=== PATIENT | female | born 1950 | race Caucasian/White ===

== ENCOUNTER → 2017-02-05 | Outpatient (CLI) | payer OTHER ==
[~2017-02-05] MED LIST: ANAPROX DS550 MG PO; ANTIVERT/2525 MG PO; ASPIRIN81 M1 PO; BENADRYL25 M2 PO; CALCIUM600 M2 PO; CHONDROITIN/GLU1 TA5 PO; CILOXAN 5 ML5 ML OT; CLARITIN-D 24 H1 TAB PO; CRANBERRY PO; DILTIA XT180 MG PO; DILTIAZEM; Diltiazem180 MG PO; FOSAMAX70 MG/75 M PO; GLUCOSAMINE CH1 EAC2 PO; GLUCOSAMINE500 M1 PO; NASONEX0.05 MG/AC NS; NEFAZODONE150 MG PO; PREVACID15 MG PO; TRAMADOL HCL50 MG PO; VENLAFAXINE H37.5 M1 PO; VITAMIN C500 M6 PO; ZOFRAN ODT4 MG SL; eye drops
== END | disposition home or self-care (01) ==
LOC: MAMMO 01-26 13:00
DX: Z12.31 Encounter for screening mammogram for malignant neoplasm of breast (principal)

== ENCOUNTER 2017-03-19 18:45 | Emergency (ER) | payer OTHER ==
[~2017-03-19] VITALS: Ht 165.1 cm; Wt 90.7 kg
[2017-03-19] MEDS ORDERED: KENALOG 0.1%80 GM T (19:21)
[2017-03-19] MEDS ORDERED: PREDNISONE10 MG PO (19:21)
== END 2017-03-19 22:40 | disposition home or self-care (01) ==
LOC: ED 18:45
DX: L25.5 Unspecified contact dermatitis due to plants, except food (principal); Z91.041 Radiographic dye allergy status; Z79.82 Long term (current) use of aspirin; Z79.899 Other long term (current) drug therapy

== ENCOUNTER → 2018-05-11 | Outpatient (CLI) | payer MEDICARE ==
[~2018-05-11] MED LIST changes: +KENALOG 0.1%80 GM T; +PREDNISONE10 MG PO
== END | disposition home or self-care (01) ==
LOC: MAMMO 16:40
DX: Z12.31 Encounter for screening mammogram for malignant neoplasm of breast (principal)

== ENCOUNTER 2018-10-12 11:44 | Inpatient (IN) | payer MEDICARE ==
[~2018-10-12] VITALS: Ht 165.1 cm; Wt 96.4 kg
--- NOTE | ~2018-10-12 | EKG ---
[place], [place] ELECTROCARDIOGRAM REPORT NAME: NANCI BENDER UNIT #: [id number] ROOM: 502 DOCTOR: NICOLE DRAFT REPORT BIRTHDATE: [birth year] [facility] Test Date: 2018-10-12 Test Time: 18:08:21 Pat Name: NANCI BENDER Department: Room: [facility] Gender: F Director Of Clinical Services: Alpa Cain : 1950 Requested By: KIMBERLEY SHAH Order Number: [id number] Reading MD: Syed Harris MD Measurements Intervals [place] Rate: 75 P: 22 [place]: 153 QRS: -7 QRSD: 93 T: 54 QT: 459 QTc: 513 Interpretive Statements Sinus rhythm Probable LVH with secondary repol abnrm Inferior infarct, old Prolonged QT interval Baseline wander in lead(s) V1 No previous ECG available for comparison Electronically Signed On 10-12-2018 17:04:49 PST by Syed Harris MD CM:EKGRPT:ELECTROCARDIOGRAM REPORT [id number] 1704 KIMBERLEY RIVERA DRAFT REPORT KIMBERLEY SHAH MD
--- NOTE | ~2018-10-12 | EKG ---
[place], [place] ELECTROCARDIOGRAM REPORT NAME: NANCI BENDER UNIT #: [id number] ROOM: 502 DOCTOR: NICOLE DRAFT REPORT BIRTHDATE: [birth year] [facility] Test Date: 2018-10-12 Test Time: 11:44:35 Pat Name: NANCI BENDER Department: ER Room: [facility] Gender: F Distributor Cleaner: Fady Thorpe : 1950 Requested By: KIMBERLEY SHAH Order Number: [id number] Reading MD: Syed Harris MD Measurements Intervals [place] Rate: 78 P: 63 [place]: 164 QRS: -7 QRSD: 94 T: 135 QT: 426 QTc: 486 Interpretive Statements Sinus rhythm Abnormal R-wave progression, early transition Probable LVH with secondary repol abnrm Inferior infarct, old Electronically Signed On 10-12-2018 17:03:31 PST by Syed Harris MD CM:EKGRPT:ELECTROCARDIOGRAM REPORT 1144 1703 KIMBERLEY RIVERA DRAFT REPORT KIMBERLEY SHAH MD
--- NOTE | ~2018-10-12 | EKG ---
[place], [place] ELECTROCARDIOGRAM REPORT NAME: NANCI BENDER UNIT #: [id number] ROOM: 502 DOCTOR: NICOLE DRAFT REPORT BIRTHDATE: [birth year] [facility] Test Date: 2018-10-12 Test Time: 15:41:53 Pat Name: NANCI BENDER Department: Room: [facility] Gender: F Case Management Manager: Alpa Cain : 1950 Requested By: KIMBERLEY SHAH Order Number: [id number] Reading MD: Syed Harris MD Measurements Intervals [place] Rate: 73 P: 57 [place]: 158 QRS: -14 QRSD: 97 T: 116 QT: 410 QTc: 452 Interpretive Statements Sinus rhythm Probable LVH with secondary repol abnrm Inferior infarct, old No previous ECG available for comparison Electronically Signed On 10-12-2018 17:04:34 PST by Syed Harris MD CM:EKGRPT:ELECTROCARDIOGRAM REPORT [id number] 1704 KIMBERLEY RIVERA DRAFT REPORT
--- NOTE | ~2018-10-12 | EKG ---
[place], [place] ELECTROCARDIOGRAM REPORT NAME: NANCI BENDER UNIT #: [id number] ROOM: DOCTOR: NICOLE DRAFT REPORT BIRTHDATE: [birth year] [facility] Test Date: 2018-10-12 Test Time: 11:53:30 Pat Name: NANCI BENDER Department: Room: Gender: F Syrup Mixer Assistant: : 1950 Requested By: KIMBERLEY SHAH Order Number: [id number] Reading MD: Measurements Intervals [place] Rate: 81 P: 58 [place]: 157 QRS: -12 QRSD: 104 T: 75 QT: 388 QTc: 451 Interpretive Statements Sinus rhythm Low voltage, extremity leads Probable left ventricular hypertrophy Baseline wander in lead(s) V4 No previous ECG available for comparison CM:EKGRPT:ELECTROCARDIOGRAM REPORT 1153 0858 KIMBERLEY RIVERA DRAFT REPORT KIMBERLEY SHAH MD
[2018-10-12 11:49] VITALS: BP 119/79
[2018-10-12 12:09] LABS: BASO % 0.6 % (0.0-1.0); EOS # 0.1 10*3/uL (0.0-0.4); EOS % 1.8 % (1.0-4.0); HEMATOCRIT 41.1 % (37.0-47.0); LYMPH # 2.2 10*3/uL (1.3-4.4); LYMPH % 32.9 % (27.0-41.0); MEAN CELL VOLUME 93.8 fl (81.0-99.0); MEAN CORPUSCULAR HGB 29.7 pg (27.0-31.0); MEAN CORPUSCULAR HGB CONC 31.6 g/dl (33.0-37.0); MONO # 0.9 10*3/uL (0.1-1.0); MONO % 13.9 % (3.0-9.0); NEUT # 3.4 10*3/uL (2.3-7.9); NEUT % 50.2 % (47.0-73.0); PLATELET COUNT AUTOMATED 333 10*3/uL (130-400); RED BLOOD COUNT 4.38 10*6/uL (4.10-5.10); RED CELL DISTRI WIDTH 13.7 % (0-14.5); WHITE BLOOD COUNT 6.7 10*3/uL (4.8-10.8)
[2018-10-12 12:21] LABS: INTERNATIONAL NORM RATIO 0.9 (2.0-3.5)
[2018-10-12 12:39] LABS: ALBUMIN 3.6 gm/dl (3.1-4.5); ALKALINE PHOSPHATASE 88 U/L (45-117); BUN 15 mg/dl (7-24); CHLORIDE 110 mmol/L (98-107); CREATININE 0.93 mg/dL (0.55-1.02); POTASSIUM 3.5 mmol/L (3.5-5.1); SGOT/AST 15 IU/L (3-35); SGPT/ALT 23 U/L (12-78); SODIUM 143 mmol/L (136-145); TOTAL PROTEIN 7.2 gm/dL (6.4-8.2)
[2018-10-12 12:45] VITALS: BP 138/78
[2018-10-12 12:45] LABS: TROPONIN I < 0.015 ng/ml (<0.045)
[2018-10-12 14:30] VITALS: BP 153/85
[2018-10-12 20:00] VITALS: BP 147/69
[2018-10-13] VITALS: BP 145/66
[2018-10-13 06:35] LABS: BASO # 0.1 10*3/uL (0.0-0.1); BASO % 0.6 % (0.0-1.0); EOS # 0.4 10*3/uL (0.0-0.4); EOS % 4.1 % (1.0-4.0); HEMATOCRIT 42.5 % (37.0-47.0); HEMOGLOBIN 12.8 g/dl (12.0-16.0); LYMPH # 3.9 10*3/uL (1.3-4.4); LYMPH % 43.5 % (27.0-41.0); MEAN CELL VOLUME 95.5 fl (81.0-99.0); MEAN CORPUSCULAR HGB 28.8 pg (27.0-31.0); MEAN CORPUSCULAR HGB CONC 30.1 g/dl (33.0-37.0); MEAN PLATELET VOLUME 10.5 fl (9.6-12.3); MONO % 11.4 % (3.0-9.0); NEUT # 3.6 10*3/uL (2.3-7.9); NEUT % 40.1 % (47.0-73.0); PLATELET COUNT AUTOMATED 334 10*3/uL (130-400); RED BLOOD COUNT 4.45 10*6/uL (4.10-5.10); RED CELL DISTRI WIDTH 13.7 % (0-14.5)
[2018-10-13 06:56] LABS: BUN 14 mg/dl (7-24); CHLORIDE 109 mmol/L (98-107); CHOLESTEROL 197 mg/dL (<200); CREATININE 0.85 mg/dL (0.55-1.02); FREE T4 0.97 ng/dl (0.76-1.46); HDL CHOLESTEROL 55 mg/dl (40-60); LDL CHOLESTEROL 117 mg/dL (9-159); PHOSPHOROUS 3.5 mg/dL (2.5-4.9); POTASSIUM 3.5 mmol/L (3.5-5.1); SODIUM 142 mmol/L (136-145); TRIGLYCERIDES 125 mg/dl (<150); VLDL CHOLESTEROL 25 mg/dL (6-40)
[2018-10-13 07:33] LABS: VITAMIN D, 25-HYDROXY 28.8 ng/mL (30-100)
[2018-10-13 08:00] VITALS: BP 142/76
[2018-10-13 12:00] VITALS: BP 114/82
[2018-10-13 16:00] VITALS: BP 153/73
[2018-12-16] MEDS ORDERED: PREDNISONE50 MG PO (08:23)
== END 2018-10-13 17:50 | disposition home or self-care (01) | DRG 206 ==
LOC: ED 11:44 → EDHOLD 13:09 → 5E 13:18
PROVIDERS: Emergency Medicine; Internal Medicine; ADMIT Internal Medicine
PROC: 3E073KZ Introduction of Other Diagnostic Substance into Coronary Artery, Percutaneous Approach (ICD-10-PCS; principal; 2018-10-13)
PROC: 4A02XM4 Measurement of Cardiac Total Activity, External Approach (ICD-10-PCS; principal; 2018-10-13)
DX: M94.0 Chondrocostal junction syndrome [Tietze] (principal); K21.9 Gastro-esophageal reflux disease without esophagitis; I10 Essential (primary) hypertension; R07.89 Other chest pain; F41.9 Anxiety disorder, unspecified; F32.9 Major depressive disorder, single episode, unspecified; L42 Pityriasis rosea; E87.8 Other disorders of electrolyte and fluid balance, not elsewhere classified; Z90.49 Acquired absence of other specified parts of digestive tract; Z90.710 Acquired absence of both cervix and uterus; Z79.82 Long term (current) use of aspirin; Z79.899 Other long term (current) drug therapy; Z91.041 Radiographic dye allergy status; Z82.49 Family history of ischemic heart disease and other diseases of the circulatory system

== ENCOUNTER 2019-03-20 14:22 | Inpatient (IN) | payer MEDICARE ==
[~2019-03-20] VITALS: Ht 165.1 cm; Wt 87.7 kg
--- NOTE | ~2019-03-20 | EKG ---
[place], [place] ELECTROCARDIOGRAM REPORT NAME: NANCI BENDER UNIT #: [id number] ROOM: [facility] DOCTOR: NICOLE DRAFT REPORT BIRTHDATE: [birth year] [facility] Test Date: 2019-03-20 Test Time: 20:32:40 Pat Name: NANCI BENDER Department: Room: [facility] Gender: F Cheese Sprayer: : 1950 Requested By: KIMBERLEY SHAH Order Number: [id number] Reading MD: Mike Mai MD Measurements Intervals [place] Rate: 90 P: 49 MS: 155 QRS: -6 QRSD: 98 T: 87 QT: 389 QTc: 476 Interpretive Statements Sinus rhythm Nonspecific T abnormalities, lateral leads Electronically Signed On 03-21-2019 16:07:49 PDT by Mike Mai MD CM:EKGRPT:ELECTROCARDIOGRAM REPORT 31 1607 KIMBERLEY RIVERA DRAFT REPORT KIMBERLEY SHAH MD
--- NOTE | ~2019-03-20 | EKG ---
[place], [place] ELECTROCARDIOGRAM REPORT NAME: NANCI BENDER UNIT #: [id number] ROOM: [facility] DOCTOR: NICOLE DRAFT REPORT BIRTHDATE: [birth year] [facility] Test Date: 2019-03-20 Test Time: 14:55:22 Pat Name: NANCI BENDER Department: Room: [facility] Gender: F Artificial Glass Eye Maker: EKG.HI : 1950 Requested By: KIMBERLEY SHAH Order Number: [id number] Reading MD: Mike Mai MD Measurements Intervals [place] Rate: 88 P: 46 [place]: 148 QRS: -10 QRSD: 86 T: 129 QT: 361 QTc: 437 Interpretive Statements Sinus rhythm Probable left atrial enlargement Nonspecific ST \T\ T changes Possible inferior infarct, age undetermined Electronically Signed On 03-21-2019 15:55:50 PDT by Mike Mai MD CM:EKGRPT:ELECTROCARDIOGRAM REPORT [id number] 1555 KIMBERLEY RIVERA DRAFT REPORT KIMBERLEY SHAH MD
--- NOTE | ~2019-03-20 | EKG ---
[place], [place] ELECTROCARDIOGRAM REPORT NAME: NANCI BENDER UNIT #: [id number] ROOM: [facility] DOCTOR: NICOLE DRAFT REPORT BIRTHDATE: [birth year] [facility] Test Date: 2019-03-20 Test Time: 17:37:06 Pat Name: NANCI BENDER Department: Room: [facility] Gender: F End User Support Specialist: [email or web address].AZ : 1950 Requested By: KIMBERLEY SHAH Order Number: [id number] Reading MD: Mike Mai MD Measurements Intervals [place] Rate: 94 P: 57 MD: 154 QRS: -22 QRSD: 84 T: 144 QT: 438 QTc: 548 Interpretive Statements Sinus rhythm Possible inferior infarct, old Lateral leads are also involved Electronically Signed On 03-21-2019 15:59:44 PDT by Mike Mai MD CM:EKGRPT:ELECTROCARDIOGRAM REPORT [id number] 1559 KIMBERLEY RIVERA DRAFT REPORT KIMBERLEY SHAH MD
[2019-03-20 14:22] VITALS: BP 116/88
[~2019-03-20 14:22] MED LIST changes: +PREDNISONE50 MG PO
[2019-03-20 14:56] VITALS: BP 147/76
--- NOTE | 2019-03-20 14:56 | NUR ---
FEELING A LITTLE BETTER AFTER MEDS HOWEVER SHE DOES STILL HAVE SOME DIFFICULTY SWALLOWING.
[2019-03-20 15:05] LABS: BASO # 0.1 10*3/uL (0.0-0.1); BASO % 0.8 % (0.0-1.0); EOS # 0.5 10*3/uL (0.0-0.4); EOS % 3.9 % (1.0-4.0); HEMATOCRIT 46.2 % (37.0-47.0); HEMOGLOBIN 14.4 g/dl (12.0-16.0); LYMPH # 4.4 10*3/uL (1.3-4.4); LYMPH % 38.1 % (27.0-41.0); MEAN CELL VOLUME 94.9 fl (81.0-99.0); MEAN CORPUSCULAR HGB 29.6 pg (27.0-31.0); MEAN CORPUSCULAR HGB CONC 31.2 g/dl (33.0-37.0); MEAN PLATELET VOLUME 10.5 fl (9.6-12.3); MONO % 8.4 % (3.0-9.0); NEUT # 5.6 10*3/uL (2.3-7.9); NEUT % 48.3 % (47.0-73.0); PLATELET COUNT AUTOMATED 474 10*3/uL (130-400); RED BLOOD COUNT 4.87 10*6/uL (4.10-5.10); RED CELL DISTRI WIDTH 13.5 % (0-14.5); WHITE BLOOD COUNT 11.6 10*3/uL (4.8-10.8)
[2019-03-20 15:16] LABS: ACT PARTIAL THROMBO TIME 21.5 SECONDS (20.0-32.1); INTERNATIONAL NORM RATIO 0.9 (2.0-3.5)
[2019-03-20 15:24] LABS: ALBUMIN 3.6 gm/dl (3.1-4.5); ALKALINE PHOSPHATASE 86 U/L (45-117); BUN 12 mg/dl (7-24); CHLORIDE 110 mmol/L (98-107); CREATININE 1.13 mg/dL (0.55-1.02); POTASSIUM 3.3 mmol/L (3.5-5.1); SGOT/AST 10 IU/L (3-35); SGPT/ALT 20 U/L (12-78); SODIUM 145 mmol/L (136-145)
[2019-03-20 15:25] LABS: TROPONIN I < 0.015 ng/ml (<0.045)
[2019-03-20 15:33] VITALS: BP 147/76
--- NOTE | 2019-03-20 15:50 | NUR ---
A 68, admitted to ICCU, under the services of REYNA Christie DO with a diagnosis of ANAPHYLAXSIS, CHEST PRESSURE. Chief complaint is REACTION TO BEE STING. Patient arrived via stretcher from ER. Monitor applied. Initial assessment completed. Vital signs taken and recorded. REYNA CHRISTIE DO notified of admission to the unit. Orders received. See assessment for past medical history, medications and allergies. Patient and/or family oriented to unit. [facility] ICCU visitation policy reviewed. Clothing/patient valuable form completed. IVF BOLUS INFUSING [place] FERRELL
[2019-03-20 15:53] VITALS: BP 171/75
--- NOTE | 2019-03-20 15:53 | NUR ---
A 68, admitted to ICCU, under the services of REYNA Christie DO with a diagnosis of CHEST HEAVINESS AND ANAPHYLACTIC REACTION TO BEE STING. Chief complaint is HIVES AND DIFFICULTY BREATHING AFTER BEE STING. Patient arrived via stretcher from ER. Monitor applied. Initial assessment completed. Vital signs taken and recorded. REYNA CHRISTIE DO notified of admission to the unit. Orders received. See assessment for past medical history, medications and allergies. Patient and/or family oriented to unit. [facility] ICCU visitation policy reviewed. Clothing/patient valuable form completed. JF BACK
--- NOTE | 2019-03-20 16:05 | NUR ---
MED REC REVIEWED WITH PATIENT AND UPDATED
--- NOTE | 2019-03-20 17:25 | NUR ---
PT EATING DINNER. PT DENIES C/O OF TROUBLE SWALLOWING AT THIS TIME. WILL CONTINUE TO MONITOR PT.
[2019-03-20 20:00] VITALS: BP 174/84
--- NOTE | 2019-03-20 20:18 | NUR ---
1935 RESTING IN BED TALKING WITH VISITORS. ALERT AND PLEASANT. IV FLUIDS INFUSING WELL. DENIES C/O'S CHEST HEAVINESS AT PRESENT TIME. PULSE OX 97% ON RA. NO SWELLING NOTED OF LIPS OR EYELIDS AT PRESENT. RESPIRATIONS EASY AND REGULAR.
--- NOTE | 2019-03-20 22:17 | NUR ---
RESTING IN BE WITHOUT C/O'S.
[2019-03-21] VITALS: BP 150/70
--- NOTE | 2019-03-21 00:11 | NUR ---
RESTING IN BED WITHOUT C/O'S. NO DISTRESS NOTED.
[2019-03-21 04:00] VITALS: BP 162/78
--- NOTE | 2019-03-21 04:03 | NUR ---
RESTING IN BED WITH EYES CLOSED. APPEARS TO BE SLEEPING.
[2019-03-21 04:59] LABS: HEMATOCRIT 39.2 % (37.0-47.0); MEAN CELL VOLUME 97.3 fl (81.0-99.0); MEAN CORPUSCULAR HGB 29.8 pg (27.0-31.0); MEAN CORPUSCULAR HGB CONC 30.6 g/dl (33.0-37.0); MEAN PLATELET VOLUME 10.8 fl (9.6-12.3); PLATELET COUNT AUTOMATED 363 10*3/uL (130-400); RED BLOOD COUNT 4.03 10*6/uL (4.10-5.10); RED CELL DISTRI WIDTH 13.6 % (0-14.5); WHITE BLOOD COUNT 12.1 10*3/uL (4.8-10.8)
[2019-03-21 05:19] LABS: BURR CELLS FEW; PLATELET SUFFICIENCY NORMAL (NORMAL); TOTAL CELLS COUNTED 100 #CELLS
[2019-03-21 05:25] LABS: ALBUMIN 3.2 gm/dl (3.1-4.5); ALKALINE PHOSPHATASE 73 U/L (45-117); BUN 10 mg/dl (7-24); CHLORIDE 115 mmol/L (98-107); CHOLESTEROL 208 mg/dL (<200); CREATININE 0.68 mg/dL (0.55-1.02); FREE T4 0.88 ng/dl (0.76-1.46); HDL CHOLESTEROL 70 mg/dl (40-60); LDL CHOLESTEROL 128 mg/dL (9-159); PHOSPHOROUS 3.2 mg/dL (2.5-4.9); POTASSIUM 4.1 mmol/L (3.5-5.1); SGOT/AST 12 IU/L (3-35); SGPT/ALT 19 U/L (12-78); SODIUM 144 mmol/L (136-145); TOTAL PROTEIN 5.9 gm/dL (6.4-8.2); TRIGLYCERIDES 48 mg/dl (<150); VLDL CHOLESTEROL 10 mg/dL (6-40)
[2019-03-21 05:30] LABS: THYROID STIM HORMONE (HS) 0.521 uIU/ml (0.358-4.75)
--- NOTE | 2019-03-21 06:03 | NUR ---
0520 TYLENOL 2 PO FOR C/O'S H/A. WILL MONITOR. 0600 EARLIER TYLENOL EFFECTIVE. RESTING IN BED WITH EYES CLOSED. IV FLUIDS CONT. NO DISTRESS NOTED. CONDITION GUARDED.
[2019-03-21 07:24] LABS: VITAMIN D, 25-HYDROXY 22.6 ng/mL (30-100)
[2019-03-21 08:00] VITALS: BP 190/98
--- NOTE | 2019-03-21 08:45 | NUR ---
DR. SUTHERLAND NOTIFIED OF BP 190/98. NOLVIA COHEN ORDERED
--- NOTE | 2019-03-21 09:00 | NUR ---
Flower Buncher Or Picker in to talk to patient. Patient states lives at home with her . Her son lives in the apartment right in front of her. There are basement steps in the home. Physician: Dr. Neil Mcdonough [facility]acy: [facility] Home health services: none Patient's level of ADLs: INDEPENDENT Patient has working utilities: yes DME: none Follow-up physician's appointment after d/c: will be made by the hospitalist nurse director upon discharge Does patient want to access PORTAL?: no Discharge plan discussed with patient. She lives at home with her and her son living in an apartment right in front of her. She is independent in her ADLs and ambulation. Discussed home health care services and she denies any home needs at this time. When medically stable she will be discharged to home. SASHA MANZANARES
[2019-03-21] MEDS ORDERED: EPIPEN 2-P0.3 MG/0.3 IJ (09:40)
[2019-03-21] MEDS ORDERED: VITAMIN D31000 UNI1 PO (09:53)
[2019-03-21] MEDS ORDERED: B12,B-12,B 12500 MC1 PO (09:53)
[2019-03-21 12:00] VITALS: BP 180/88
--- NOTE | 2019-03-21 12:08 | NUR ---
REPEAT BP 180/88. NO VOICED COMPLAINTS. PULSE OX 100% ON ROOM AIR. LUNGS CLEAR BILATERALLY. NO EDEMA NOTED. NO HIVES SEEN.
[2019-03-21 14:18] VITALS: BP 158/60
--- NOTE | 2019-03-21 15:10 | NUR ---
Discharge instructions reviewed with patient/family. Patient receptive and verbalizes understanding. Follow-up care arranged. Written instructions given to patient/family. SCRIPT GIVEN FOR EPINEPHRINE. TOLD TO F/U WITH PCP IN 1 WEEK SUNIL CHATTERJEE
== END 2019-03-21 15:10 | disposition home or self-care (01) | DRG 917 ==
LOC: ED 14:22 → EDHOLD 15:10 → ICCU 15:10
PROVIDERS: Emergency Medicine; Internal Medicine; ADMIT Family Medicine
DX: T63.441A Toxic effect of venom of bees, accidental (unintentional), initial encounter (principal); J96.00 Acute respiratory failure, unspecified whether with hypoxia or hypercapnia; N17.0 Acute kidney failure with tubular necrosis; T78.2XXA Anaphylactic shock, unspecified, initial encounter; J98.11 Atelectasis; R07.89 Other chest pain; I10 Essential (primary) hypertension; K21.9 Gastro-esophageal reflux disease without esophagitis; J32.9 Chronic sinusitis, unspecified; E87.6 Hypokalemia; E87.8 Other disorders of electrolyte and fluid balance, not elsewhere classified; D72.829 Elevated white blood cell count, unspecified; F41.9 Anxiety disorder, unspecified; F32.9 Major depressive disorder, single episode, unspecified; R00.0 Tachycardia, unspecified; X58.XXXA Exposure to other specified factors, initial encounter; Z91.041 Radiographic dye allergy status; Z90.49 Acquired absence of other specified parts of digestive tract; Z90.710 Acquired absence of both cervix and uterus; Z82.49 Family history of ischemic heart disease and other diseases of the circulatory system; Z79.82 Long term (current) use of aspirin; Z79.899 Other long term (current) drug therapy

== ENCOUNTER 2019-03-22 10:42 | Inpatient (IN) | payer MEDICARE ==
[~2019-03-22] VITALS: Ht 165.1 cm; Wt 91.7 kg
[2019-03-22] VITALS (8 sets, daily range): BP systolic 156–194; BP diastolic 77–97
--- NOTE | ~2019-03-22 | EKG ---
[place], [place] ELECTROCARDIOGRAM REPORT NAME: NANCI BENDER UNIT #: [id number] ROOM: 507 DOCTOR: NICOLE DRAFT REPORT BIRTHDATE: [birth year] [facility] Test Date: 2019-03-22 Test Time: 11:01:22 Pat Name: NANCI BENDER Department: Room: 507 Gender: F Research Assistant Professor: Alpa Cain : 1950 Requested By: TRAVIS CAVANAUGH Order Number: [id number] Reading MD: Mike Mai MD Measurements Intervals [place] Rate: 71 P: 25 [place]: 149 QRS: -4 QRSD: 96 T: 47 QT: 411 QTc: 447 Interpretive Statements Sinus rhythm Nonspecific T wave abnormality Electronically Signed On 03-22-2019 13:04:57 PDT by Mike Mai MD CM:EKGRPT:ELECTROCARDIOGRAM REPORT 1101 1304 TRAVIS FU DRAFT REPORT TRAVIS CAVANAUGH DO
[~2019-03-22 10:42] MED LIST changes: +B12,B-12,B 12500 MC1 PO; +EPIPEN 2-P0.3 MG/0.3 IJ; +VITAMIN D31000 UNI1 PO
[2019-03-22 11:08] LABS: HEMATOCRIT 39.3 % (37.0-47.0); HEMOGLOBIN 12.5 g/dl (12.0-16.0); MEAN CELL VOLUME 94.5 fl (81.0-99.0); MEAN CORPUSCULAR HGB CONC 31.8 g/dl (33.0-37.0); MEAN PLATELET VOLUME 10.3 fl (9.6-12.3); PLATELET COUNT AUTOMATED 381 10*3/uL (130-400); RED BLOOD COUNT 4.16 10*6/uL (4.10-5.10); RED CELL DISTRI WIDTH 14.1 % (0-14.5); WHITE BLOOD COUNT 18.9 10*3/uL (4.8-10.8)
[2019-03-22 11:17] LABS: ACT PARTIAL THROMBO TIME 22.7 SECONDS (20.0-32.1); INTERNATIONAL NORM RATIO 0.9 (2.0-3.5)
[2019-03-22 11:23] LABS: ALBUMIN 3.7 gm/dl (3.1-4.5); ALKALINE PHOSPHATASE 76 U/L (45-117); BUN 15 mg/dl (7-24); CHLORIDE 112 mmol/L (98-107); CREATININE 0.81 mg/dL (0.55-1.02); LIPASE 136 U/L (73-393); POTASSIUM 3.5 mmol/L (3.5-5.1); SGOT/AST 12 IU/L (3-35); SGPT/ALT 22 U/L (12-78); SODIUM 145 mmol/L (136-145); TOTAL PROTEIN 6.8 gm/dL (6.4-8.2)
[2019-03-22 11:25] LABS: PLATELET SUFFICIENCY NORMAL (NORMAL); TOTAL CELLS COUNTED 100 #CELLS; TROPONIN I < 0.015 ng/ml (<0.045)
[2019-03-22 12:28] LABS: BILIRUBIN NEGATIVE (NEGATIVE); BLOOD NEGATIVE (NEGATIVE); CLARITY CLEAR (CLEAR); COLOR YELLOW (YELLOW); GLUCOSE NEGATIVE (NEGATIVE); KETONE NEGATIVE (NEGATIVE); LEUKO ESTERASE NEGATIVE (NEGATIVE); NITRITE NEGATIVE (NEGATIVE); PH 7.5 (5.0-9.0); UROBILINOGEN 0.2 E.U./dl (0.2-1.0)
[2019-03-22 12:55] LABS: RBC 0-2 rbc/hpf (0-2); WBC 0-2 wbc/hpf (0-5)
--- NOTE | 2019-03-22 13:16 | NUR ---
PT WITH REDNESS TO LFT FOREARM AND LFT POSTERIOR HEEL S/P INSECT STINGS.
--- NOTE | 2019-03-22 13:45 | NUR ---
A 68, admitted to , under the services of CELINA Henriquez DO with a diagnosis of HYPERTENSIVE EMERGENCY, DIZZINESS. Chief complaint is DIZZINESS. Patient arrived via bed from ER. Monitor applied. Initial assessment completed. Vital signs taken and recorded. CELINA HENRIQUEZ DO notified of admission to the unit. Orders received. See assessment for past medical history, medications and allergies. Patient and/or family oriented to unit. [facility] ICCU visitation policy reviewed. Clothing/patient valuable form completed. ETIENNE NICE
[2019-03-23] VITALS: BP 148/80
--- NOTE | 2019-03-23 02:36 | NUR ---
SLEEPING. NO ACUTE DISTRESS NOTED.
--- NOTE | 2019-03-23 03:17 | NUR ---
UP TO BATHROOM WITH MINMAL ASSISTANCE. HEPLOCK FLUSHED WITHOUT DIFFUCLTY SITE ASYMPT. ICE TO LEFT FOREARM YELLOW ZITA STING SITE.
--- NOTE | 2019-03-23 03:40 | NUR ---
24 HR chart check completed.
[2019-03-23 06:14] LABS: BASO # 0.1 10*3/uL (0.0-0.1); BASO % 0.8 % (0.0-1.0); EOS # 0.4 10*3/uL (0.0-0.4); EOS % 2.9 % (1.0-4.0); HEMATOCRIT 42.8 % (37.0-47.0); HEMOGLOBIN 13.2 g/dl (12.0-16.0); LYMPH # 2.9 10*3/uL (1.3-4.4); LYMPH % 23.4 % (27.0-41.0); MEAN CELL VOLUME 95.5 fl (81.0-99.0); MEAN CORPUSCULAR HGB 29.5 pg (27.0-31.0); MEAN CORPUSCULAR HGB CONC 30.8 g/dl (33.0-37.0); MEAN PLATELET VOLUME 10.5 fl (9.6-12.3); MONO # 1.5 10*3/uL (0.1-1.0); MONO % 11.9 % (3.0-9.0); NEUT # 7.6 10*3/uL (2.3-7.9); NEUT % 60.5 % (47.0-73.0); PLATELET COUNT AUTOMATED 378 10*3/uL (130-400); RED BLOOD COUNT 4.48 10*6/uL (4.10-5.10); WHITE BLOOD COUNT 12.6 10*3/uL (4.8-10.8)
[2019-03-23 06:41] LABS: BUN 14 mg/dl (7-24); CHLORIDE 108 mmol/L (98-107); CREATININE 0.85 mg/dL (0.55-1.02); PHOSPHOROUS 3.8 mg/dL (2.5-4.9); POTASSIUM 3.4 mmol/L (3.5-5.1); SODIUM 141 mmol/L (136-145)
[2019-03-23 08:00] VITALS: BP 180/86
--- NOTE | 2019-03-23 11:36 | NUR ---
Handkerchief Maker in to talk to patient. Patient states lives at HOME with . There are BASEMENT steps in the home. Physician: CHARLENE Pharmacy: [facility] [place] health services: NONE Patient's level of ADLs: INDEPENDENT Patient has working utilities: YES DME: NONE Follow-up physician's appointment after d/c: WILL BE MADE BY HOSPITALIST NURSE DIRECTOR ON DISCHARGE Does patient want to access PORTAL?: NO Discharge plan PT LIVES WITH AT HOME AND IS INDEPENDENT IN HER CARE. DENIES THAT SHE HAS ANY HOME NEEDS. WILL RETURN HOME ON DISCHARGE. PT STATES SHE WILL HAVE A RIDE HOME. WILL CONTINUE TO FOLLOW.. MIGUEL CONTEH
[2019-03-23 12:00] VITALS: BP 161/90
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
[2019-03-23] MEDS ORDERED: HYDR25T PO (13:56)
[2019-03-23] MEDS ORDERED: PREDNISONE50 MG PO (13:56)
[2019-03-23] MEDS ORDERED: Nystatin Cream15 GM T (13:56)
--- NOTE | 2019-03-23 15:15 | NUR ---
Discharge instructions reviewed with patient/family. Patient receptive and verbalizes understanding. Follow-up care arranged. Written instructions given to patient/family. IV site and library monitor removed. Pt transported to [facility] via wheelchair. ELÍAS ALEXANDER
== END 2019-03-23 15:15 | disposition home or self-care (01) | DRG 305 ==
LOC: ED 10:42 → EDHOLD 12:43 → 5E 12:43
PROVIDERS: Emergency Medicine; Internal Medicine; ADMIT Internal Medicine
DX: I16.0 Hypertensive urgency (principal); F32.9 Major depressive disorder, single episode, unspecified; L42 Pityriasis rosea; T63.441A Toxic effect of venom of bees, accidental (unintentional), initial encounter; E87.8 Other disorders of electrolyte and fluid balance, not elsewhere classified; F41.9 Anxiety disorder, unspecified; K21.9 Gastro-esophageal reflux disease without esophagitis; D72.829 Elevated white blood cell count, unspecified; I11.9 Hypertensive heart disease without heart failure; M19.90 Unspecified osteoarthritis, unspecified site; Z90.710 Acquired absence of both cervix and uterus; Z90.89 Acquired absence of other organs; Z90.49 Acquired absence of other specified parts of digestive tract; Z98.42 Cataract extraction status, left eye; Z98.41 Cataract extraction status, right eye; Z82.49 Family history of ischemic heart disease and other diseases of the circulatory system; Z91.030 Bee allergy status; Z91.041 Radiographic dye allergy status; Z79.82 Long term (current) use of aspirin; Z79.899 Other long term (current) drug therapy; Y92.89 Other specified places as the place of occurrence of the external cause

== ENCOUNTER 2019-05-29 19:29 | Emergency (ER) | payer MEDICARE ==
[~2019-05-29] VITALS: Wt 90.7 kg
[~2019-05-29 19:29] MED LIST changes: +HYDR25T PO; +Nystatin Cream15 GM T
[2019-05-29] MEDS ORDERED: KENALOG 0.1%80 GM T (19:55)
== END 2019-05-29 20:09 | disposition home or self-care (01) ==
LOC: ED 19:29
DX: R21 Rash and other nonspecific skin eruption (principal); Z91.041 Radiographic dye allergy status; Z91.030 Bee allergy status; Z79.899 Other long term (current) drug therapy; Z79.82 Long term (current) use of aspirin; Z90.710 Acquired absence of both cervix and uterus; Z90.49 Acquired absence of other specified parts of digestive tract

== ENCOUNTER 2019-07-13 16:13 | Emergency (ER) | payer MEDICARE ==
[~2019-07-13] VITALS: Ht 165.1 cm; Wt 83.9 kg
== END 2019-07-13 18:28 | disposition home or self-care (01) ==
LOC: ED 16:13
DX: S92.421A Displaced fracture of distal phalanx of right great toe, initial encounter for closed fracture (principal); S90.121A Contusion of right lesser toe(s) without damage to nail, initial encounter; I10 Essential (primary) hypertension; K21.9 Gastro-esophageal reflux disease without esophagitis; M19.90 Unspecified osteoarthritis, unspecified site; Z91.041 Radiographic dye allergy status; Z91.030 Bee allergy status; Z79.899 Other long term (current) drug therapy; Z79.82 Long term (current) use of aspirin; Z90.710 Acquired absence of both cervix and uterus; Z90.49 Acquired absence of other specified parts of digestive tract; W22.8XXA Striking against or struck by other objects, initial encounter; Y93.01 Activity, walking, marching and hiking; Y92.098 Other place in other non-institutional residence as the place of occurrence of the external cause; Y99.8 Other external cause status

== ENCOUNTER 2019-09-25 12:48 | Emergency (ER) | payer MEDICARE ==
[~2019-09-25] VITALS: Ht 165.1 cm; Wt 81.6 kg
[2019-09-25] MEDS ORDERED: KENALOG 0.1%80 GM T (13:24)
== END 2019-09-25 13:32 | disposition home or self-care (01) ==
LOC: ED 12:48
DX: R21 Rash and other nonspecific skin eruption (principal); K21.9 Gastro-esophageal reflux disease without esophagitis; I10 Essential (primary) hypertension; M19.90 Unspecified osteoarthritis, unspecified site; Z91.041 Radiographic dye allergy status; Z91.030 Bee allergy status; Z79.899 Other long term (current) drug therapy; Z79.82 Long term (current) use of aspirin; Z98.61 Coronary angioplasty status; Z90.710 Acquired absence of both cervix and uterus; Z90.49 Acquired absence of other specified parts of digestive tract

== ENCOUNTER 2019-11-26 14:19 | Emergency (ER) | payer MEDICARE ==
[~2019-11-26] VITALS: Ht 165.1 cm; Wt 86.2 kg
[2019-11-26] MEDS ORDERED: CEPHALEXIN500 M1 PO (14:51)
[2019-11-26] MEDS ORDERED: PREDNISONE20 M1 PO (14:51)
[2019-11-26] MEDS ORDERED: VISTARIL25 MG PO (14:51)
[2019-11-26] MEDS ORDERED: KENALOG 0.5% CR15 GM T (14:51)
== END 2019-11-26 14:56 | disposition home or self-care (01) ==
LOC: ED 14:19
DX: L25.9 Unspecified contact dermatitis, unspecified cause (principal); F41.9 Anxiety disorder, unspecified; K21.9 Gastro-esophageal reflux disease without esophagitis; F32.9 Major depressive disorder, single episode, unspecified; I10 Essential (primary) hypertension; M19.90 Unspecified osteoarthritis, unspecified site; Z90.710 Acquired absence of both cervix and uterus; Z91.030 Bee allergy status; Z91.041 Radiographic dye allergy status; Z79.82 Long term (current) use of aspirin; Z79.899 Other long term (current) drug therapy; Z79.2 Long term (current) use of antibiotics

== ENCOUNTER 2019-12-16 15:00 | Emergency (ER) | payer MEDICARE ==
[~2019-12-16] VITALS: Ht 165.1 cm; Wt 82.6 kg
[~2019-12-16 15:00] MED LIST changes: +CEPHALEXIN500 M1 PO; +KENALOG 0.5% CR15 GM T; +PREDNISONE20 M1 PO; +VISTARIL25 MG PO
[2019-12-16] MEDS ORDERED: TEMOVATE30 GM T (15:33)
== END 2019-12-16 15:37 | disposition home or self-care (01) ==
LOC: ED 15:00
DX: L30.9 Dermatitis, unspecified (principal); K59.00 Constipation, unspecified; I10 Essential (primary) hypertension; K21.9 Gastro-esophageal reflux disease without esophagitis; Z91.030 Bee allergy status; Z91.041 Radiographic dye allergy status; Z79.899 Other long term (current) drug therapy; Z79.82 Long term (current) use of aspirin

== ENCOUNTER 2020-10-21 17:51 | Emergency (ER) | payer MEDICARE ==
[~2020-10-21] VITALS: Ht 165.1 cm; Wt 83.9 kg
[~2020-10-21 17:51] MED LIST changes: +TEMOVATE30 GM T
[2020-10-21] MEDS ORDERED: PREDNISONE20 M1 PO (18:55)
[2020-10-21] MEDS ORDERED: Kenalog 0.5% Cr15 GM T (18:55)
== END 2020-10-21 18:12 | disposition home or self-care (01) ==
LOC: ED 17:51
DX: L20.9 Atopic dermatitis, unspecified (principal); F41.9 Anxiety disorder, unspecified; K21.9 Gastro-esophageal reflux disease without esophagitis; F32.9 Major depressive disorder, single episode, unspecified; M19.90 Unspecified osteoarthritis, unspecified site; Z91.041 Radiographic dye allergy status; Z79.899 Other long term (current) drug therapy; Z79.2 Long term (current) use of antibiotics; Z79.82 Long term (current) use of aspirin; Z98.61 Coronary angioplasty status; Z90.711 Acquired absence of uterus with remaining cervical stump; Z90.89 Acquired absence of other organs; Z90.49 Acquired absence of other specified parts of digestive tract

== ENCOUNTER → 2021-06-26 | Outpatient (CLI) | payer MEDICARE ==
[~2021-06-26] MED LIST changes: +Kenalog 0.5% Cr15 GM T
== END | disposition home or self-care (01) ==
LOC: COVID19 15:05
PROVIDERS: ATTEND Internal Medicine
DX: U07.1 COVID-19 (principal)

== ENCOUNTER → 2021-10-16 | Outpatient (CLI) | payer MEDICARE | END | disposition home or self-care (01) | LOC: COVID19 15:15 | PROVIDERS: ATTEND Internal Medicine | DX: Z20.822 Contact with and (suspected) exposure to COVID-19 (principal) ==

== ENCOUNTER 2021-10-25 13:57 | Emergency (ER) | payer MEDICARE ==
[~2021-10-25] VITALS: Ht 165.1 cm; Wt 63.5 kg
[2021-10-25] MEDS ORDERED: KENALOG 0.1%80 GM T (14:36)
== END 2021-10-25 15:20 | disposition home or self-care (01) ==
LOC: ED 13:57
DX: L30.9 Dermatitis, unspecified (principal); Z91.041 Radiographic dye allergy status; Z79.899 Other long term (current) drug therapy; Z79.82 Long term (current) use of aspirin; Z90.89 Acquired absence of other organs; Z90.710 Acquired absence of both cervix and uterus; Z98.890 Other specified postprocedural states

== ENCOUNTER → 2021-12-09 | Outpatient (CLI) | payer MEDICARE ==
[2021-12-09 13:07] LABS: BASO % 0.4 % (0.0-1.0); EOS # 0.2 10*3/uL (0.0-0.4); EOS % 2.2 % (1.0-4.0); HEMATOCRIT 43.8 % (37.0-47.0); LYMPH # 2.1 10*3/uL (1.3-4.4); LYMPH % 21.5 % (27.0-41.0); MEAN CELL VOLUME 91.3 fl (81.0-99.0); MEAN CORPUSCULAR HGB 29.4 pg (27.0-31.0); MEAN CORPUSCULAR HGB CONC 32.2 g/dl (33.0-37.0); MEAN PLATELET VOLUME 10.1 fl (9.6-12.3); MONO # 0.8 10*3/uL (0.1-1.0); MONO % 8.4 % (3.0-9.0); NEUT # 6.5 10*3/uL (2.3-7.9); NEUT % 67.3 % (47.0-73.0); PLATELET COUNT AUTOMATED 348 10*3/uL (130-400); RED CELL DISTRI WIDTH 13.2 % (0-14.5); WHITE BLOOD COUNT 9.6 10*3/uL (4.8-10.8)
[2021-12-09 13:15] LABS: BILIRUBIN Negative (Negative); BLOOD Negative (Negative); CLARITY Clear (Clear); COLOR Yellow (Yellow); GLUCOSE Negative (Negative); KETONE Negative (Negative); LEUKO ESTERASE Trace (Negative); NITRITE Negative (Negative); PH 6.5 (4.5-8.0); SPECIFIC GRAVITY 1.015 (1.001-1.030)
[2021-12-09 13:28] LABS: MUCOUS TRACE; RBC 0-2 rbc/hpf (0-2); WBC 0-2 wbc/hpf (0-5)
[2021-12-09 13:29] LABS: ALKALINE PHOSPHATASE 75 U/L (45-117); BUN 11 mg/dl (7-24); CHLORIDE 112 mmol/L (98-107); CHOLESTEROL 218 mg/dL (<200); CREATININE 0.95 mg/dL (0.55-1.02); GAMMA GLUTAMYL TRANSPEPTIDASE 6 U/L (5-55); IRON 61 ug/dL (50-170); LDL CHOLESTEROL 128 mg/dL (9-159); POTASSIUM 3.5 mmol/L (3.5-5.1); SGOT/AST 9 IU/L (3-35); SGPT/ALT 19 U/L (12-78); SODIUM 144 mmol/L (136-145); TOTAL IRON BINDING CAPACITY 297 ug/dl (250-450); TOTAL PROTEIN 7.2 gm/dL (6.4-8.2); TRIGLYCERIDES 82 mg/dl (<150)
[2021-12-09 13:43] LABS: FERRITIN 41.2 ng/mL (10.0-291.0); VITAMIN D, 25-HYDROXY 16.1 ng/mL (30-100)
[2021-12-10 08:08] LABS: RHEUMATOID FACTOR <10.0 IU/mL (<14.0)
[2021-12-10 14:08] LABS: ANTI-DSDNA ANTIBODIES 3 IU/mL (0-9)
== END | disposition home or self-care (01) ==
LOC: LAB 12:35
PROVIDERS: ATTEND Family Medicine
DX: M19.071 Primary osteoarthritis, right ankle and foot (principal); M77.31 Calcaneal spur, right foot; R79.89 Other specified abnormal findings of blood chemistry; R53.83 Other fatigue; E78.5 Hyperlipidemia, unspecified; E55.9 Vitamin D deficiency, unspecified

== ENCOUNTER → 2022-02-17 | Outpatient (CLI) | payer MEDICARE | LOC: COVID19 12:52 | PROVIDERS: ATTEND Internal Medicine | DX: Z20.822 Contact with and (suspected) exposure to COVID-19 (principal) ==

== ENCOUNTER 2022-10-28 10:51 | Emergency (ER) | payer MEDICARE ==
[~2022-10-28] VITALS: Wt 68.0 kg
[2022-10-28 11:31] LABS: BASO % 0.2 % (0.0-1.0); EOS % 0.3 % (1.0-4.0); HEMATOCRIT 41.7 % (37.0-47.0); LYMPH % 8.4 % (27.0-41.0); MEAN CELL VOLUME 91.9 fl (81.0-99.0); MEAN CORPUSCULAR HGB 29.3 pg (27.0-31.0); MEAN CORPUSCULAR HGB CONC 31.9 g/dl (33.0-37.0); MEAN PLATELET VOLUME 10.5 fl (9.6-12.3); MONO # 1.4 10*3/uL (0.1-1.0); MONO % 11.1 % (3.0-9.0); NEUT # 9.8 10*3/uL (2.3-7.9); NEUT % 79.4 % (47.0-73.0); PLATELET COUNT AUTOMATED 296 10*3/uL (130-400); RED BLOOD COUNT 4.54 10*6/uL (4.10-5.10); WHITE BLOOD COUNT 12.3 10*3/uL (4.8-10.8)
[2022-10-28 11:42] LABS: ACT PARTIAL THROMBO TIME 27.8 SECONDS (20.0-32.1)
[2022-10-28 12:47] LABS: ALKALINE PHOSPHATASE 65 U/L (46-116); BUN 8 mg/dl (9-23); CHLORIDE 106 mmol/L (98-107); POTASSIUM 3.4 mmol/L (3.4-5.1); SGPT/ALT 41 U/L (10-49); TOTAL PROTEIN 6.7 gm/dL (6.0-8.0)
[2022-10-28 13:02] LABS: LIPASE 42 U/L (12-53)
[2022-10-28 13:58] LABS: BILIRUBIN Negative (Negative); BLOOD Trace-Intact (Negative); CLARITY Cloudy (Clear); COLOR Dark Yellow (Yellow); GLUCOSE Negative (Negative); KETONE Negative (Negative); LEUKO ESTERASE 1+ (Negative); NITRITE Negative (Negative); PH 5.5 (4.5-8.0); SPECIFIC GRAVITY 1.015 (1.001-1.030)
[2022-10-28 14:56] LABS: BACTERIA TRACE; RBC 0-2 rbc/hpf (0-2)
== END 2022-10-28 17:00 | disposition short-term general hospital (02) ==
LOC: ED 10:51
PROVIDERS: Emergency Medicine
DX: A41.9 Sepsis, unspecified organism (principal); S06.360A Traumatic hemorrhage of cerebrum, unspecified, without loss of consciousness, initial encounter; I48.91 Unspecified atrial fibrillation; N39.0 Urinary tract infection, site not specified; F41.9 Anxiety disorder, unspecified; K21.9 Gastro-esophageal reflux disease without esophagitis; F32.A Depression, unspecified; I10 Essential (primary) hypertension; M19.90 Unspecified osteoarthritis, unspecified site; Z91.041 Radiographic dye allergy status; Z90.710 Acquired absence of both cervix and uterus; Z90.49 Acquired absence of other specified parts of digestive tract; Z90.89 Acquired absence of other organs; Z98.890 Other specified postprocedural states; W01.198A Fall on same level from slipping, tripping and stumbling with subsequent striking against other object, initial encounter; Y93.89 Activity, other specified; Y92.89 Other specified places as the place of occurrence of the external cause; Y99.8 Other external cause status

== ENCOUNTER → 2022-11-07 | Outpatient (CLI) | payer MEDICARE ==
[2022-11-07 10:23] LABS: HEMATOCRIT 41.4 % (37.0-47.0); MEAN CELL VOLUME 94.1 fl (81.0-99.0); MEAN CORPUSCULAR HGB 29.3 pg (27.0-31.0); MEAN CORPUSCULAR HGB CONC 31.2 g/dl (33.0-37.0); MEAN PLATELET VOLUME 9.4 fl (9.6-12.3); RED BLOOD COUNT 4.4 10*6/uL (4.10-5.10); WHITE BLOOD COUNT 9.8 10*3/uL (4.8-10.8)
[2022-11-07 10:51] LABS: ALKALINE PHOSPHATASE 83 U/L (46-116); BUN 8 mg/dl (9-23); CHLORIDE 107 mmol/L (98-107); CHOLESTEROL 138 mg/dL (<200); LDL CHOLESTEROL 85 mg/dL (9-159); POTASSIUM 3.9 mmol/L (3.4-5.1); SGPT/ALT 20 U/L (10-49); TOTAL PROTEIN 6.9 gm/dL (6.0-8.0); TRIGLYCERIDES 100 mg/dl (<150)
[2022-11-07 11:03] LABS: VITAMIN D, 25-HYDROXY 26.1 ng/mL (30-100)
== END | disposition home or self-care (01) ==
LOC: LAB 09:55
PROVIDERS: ATTEND Family Medicine
DX: Z13.220 Encounter for screening for lipoid disorders (principal); M62.81 Muscle weakness (generalized); E55.9 Vitamin D deficiency, unspecified; I62.9 Nontraumatic intracranial hemorrhage, unspecified; R53.83 Other fatigue; Z79.899 Other long term (current) drug therapy

== ENCOUNTER → 2022-12-15 | Outpatient (CLI) | payer MEDICARE ==
[2022-12-15 14:04] LABS: MEAN CELL VOLUME 93.2 fl (81.0-99.0); MEAN CORPUSCULAR HGB 29.1 pg (27.0-31.0); MEAN CORPUSCULAR HGB CONC 31.2 g/dl (33.0-37.0); RED BLOOD COUNT 4.4 10*6/uL (4.10-5.10); RED CELL DISTRI WIDTH 13.6 % (0-14.5); WHITE BLOOD COUNT 9.3 10*3/uL (4.8-10.8)
[2022-12-15 14:37] LABS: ALKALINE PHOSPHATASE 78 U/L (46-116); BUN 12 mg/dl (9-23); CHLORIDE 108 mmol/L (98-107); CHOLESTEROL 206 mg/dL (<200); FREE T4 0.91 ng/dl (0.89-1.76); LDL CHOLESTEROL 127 mg/dL (9-159); POTASSIUM 3.5 mmol/L (3.4-5.1); SGPT/ALT 10 U/L (10-49); THYROID STIM HORMONE (HS) 2.887 uIU/ml (0.550-4.780); TOTAL PROTEIN 7.1 gm/dL (6.0-8.0); TRIGLYCERIDES 63 mg/dl (<150)
[2022-12-15 14:38] LABS: VITAMIN D, 25-HYDROXY 26.6 ng/mL (30-100)
[2022-12-16 08:09] LABS: HBSAG Negative (Negative); HEP B CORE AB, IGM Negative (Negative); HEPATITIS C ANTIBODY Non Reactive (Non Reactive)
== END | disposition home or self-care (01) ==
LOC: LAB 13:32
PROVIDERS: ATTEND Family Medicine
DX: Z13.220 Encounter for screening for lipoid disorders (principal); I10 Essential (primary) hypertension; E55.9 Vitamin D deficiency, unspecified; R41.3 Other amnesia; R53.82 Chronic fatigue, unspecified; R00.2 Palpitations

== ENCOUNTER → 2022-12-18 | Outpatient (CLI) | payer MEDICARE | END | disposition home or self-care (01) | LOC: CARD 12:00 | PROVIDERS: ATTEND Internal Medicine Cardiovascular Disease | DX: I48.91 Unspecified atrial fibrillation (principal); Z79.899 Other long term (current) drug therapy ==

== ENCOUNTER → 2022-12-22 | Outpatient (CLI) | payer MEDICARE | END | disposition home or self-care (01) | LOC: LAB 14:55 | PROVIDERS: ATTEND Family Medicine | DX: E74.9 Disorder of carbohydrate metabolism, unspecified (principal); Z79.899 Other long term (current) drug therapy ==

== ENCOUNTER 2022-12-31 10:58 | Emergency (ER) | payer MEDICARE ==
[~2022-12-31] VITALS: Ht 165.1 cm; Wt 68.0 kg
[2022-12-31 11:42] LABS: BASO # 0.1 10*3/uL (0.0-0.1); BASO % 0.6 % (0.0-1.0); EOS # 0.3 10*3/uL (0.0-0.4); EOS % 4.3 % (1.0-4.0); HEMATOCRIT 40.9 % (37.0-47.0); LYMPH # 1.5 10*3/uL (1.3-4.4); LYMPH % 18.6 % (27.0-41.0); MEAN CELL VOLUME 92.7 fl (81.0-99.0); MEAN CORPUSCULAR HGB 29.3 pg (27.0-31.0); MEAN CORPUSCULAR HGB CONC 31.5 g/dl (33.0-37.0); MEAN PLATELET VOLUME 10.1 fl (9.6-12.3); MONO # 0.7 10*3/uL (0.1-1.0); MONO % 8.7 % (3.0-9.0); NEUT # 5.4 10*3/uL (2.3-7.9); NEUT % 67.5 % (47.0-73.0); PLATELET COUNT AUTOMATED 327 10*3/uL (130-400); RED BLOOD COUNT 4.41 10*6/uL (4.10-5.10); RED CELL DISTRI WIDTH 14.1 % (0-14.5); WHITE BLOOD COUNT 7.9 10*3/uL (4.8-10.8)
[2022-12-31 12:17] LABS: ALKALINE PHOSPHATASE 67 U/L (46-116); BUN 8 mg/dl (9-23); CHLORIDE 108 mmol/L (98-107); POTASSIUM 3.4 mmol/L (3.4-5.1); SGPT/ALT 8 U/L (10-49); TOTAL PROTEIN 6.8 gm/dL (6.0-8.0)
[2022-12-31] MEDS ORDERED: CYCLOBENZAPRINE10 MG PO (13:15)
[2022-12-31] MEDS ORDERED: NAPROSYN500 MG PO (13:15)
== END 2022-12-31 13:24 | disposition home or self-care (01) ==
LOC: ED 10:58
PROVIDERS: Nurse Practitioner Family
DX: S46.912A Strain of unspecified muscle, fascia and tendon at shoulder and upper arm level, left arm, initial encounter (principal); F41.9 Anxiety disorder, unspecified; M19.90 Unspecified osteoarthritis, unspecified site; K21.9 Gastro-esophageal reflux disease without esophagitis; I10 Essential (primary) hypertension; F32.A Depression, unspecified; Z91.041 Radiographic dye allergy status; Z90.710 Acquired absence of both cervix and uterus; Z90.89 Acquired absence of other organs; Z90.49 Acquired absence of other specified parts of digestive tract; Z98.890 Other specified postprocedural states; X58.XXXA Exposure to other specified factors, initial encounter; Y93.89 Activity, other specified; Y92.89 Other specified places as the place of occurrence of the external cause; Y99.8 Other external cause status

== ENCOUNTER → 2023-01-06 | Outpatient (CLI) | payer MEDICARE ==
[~2023-01-06] MED LIST changes: +CYCLOBENZAPRINE10 MG PO; +NAPROSYN500 MG PO
== END | disposition home or self-care (01) ==
LOC: MRI 00:29
PROVIDERS: ATTEND Family Medicine
DX: F03.90 Unspecified dementia, unspecified severity, without behavioral disturbance, psychotic disturbance, mood disturbance, and anxiety (principal)

== ENCOUNTER → 2023-01-26 | Outpatient (CLI) | payer MEDICARE | END | disposition home or self-care (01) | LOC: US 12:30 | PROVIDERS: ATTEND Family Medicine | DX: I65.23 Occlusion and stenosis of bilateral carotid arteries (principal); I63.9 Cerebral infarction, unspecified; E04.2 Nontoxic multinodular goiter; I10 Essential (primary) hypertension; R41.3 Other amnesia ==

== ENCOUNTER → 2023-02-07 | Outpatient (CLI) | payer MEDICARE | END | disposition home or self-care (01) | LOC: US 03:00 | PROVIDERS: ATTEND Family Medicine | DX: E04.2 Nontoxic multinodular goiter (principal) ==

== ENCOUNTER → 2023-06-24 | Outpatient (CLI) | payer MEDICARE | END | disposition home or self-care (01) | LOC: US 10:24 → MAMMO 11:30 | PROVIDERS: ATTEND Family Medicine | DX: Z12.31 Encounter for screening mammogram for malignant neoplasm of breast (principal); R10.819 Abdominal tenderness, unspecified site; Z90.710 Acquired absence of both cervix and uterus ==

== ENCOUNTER → 2023-12-03 | Outpatient (CLI) | payer MEDICARE ==
[2023-12-03 14:25] LABS: HEMATOCRIT 43.6 % (37.0-47.0); MEAN CELL VOLUME 95.2 fl (81.0-99.0); MEAN CORPUSCULAR HGB 30.1 pg (27.0-31.0); MEAN CORPUSCULAR HGB CONC 31.7 g/dl (33.0-37.0); MEAN PLATELET VOLUME 9.7 fl (9.6-12.3); RED BLOOD COUNT 4.58 10*6/uL (4.10-5.10); RED CELL DISTRI WIDTH 12.7 % (0-14.5); WHITE BLOOD COUNT 9.6 10*3/uL (4.8-10.8)
[2023-12-03 14:48] LABS: ALKALINE PHOSPHATASE 78 U/L (46-116); BUN 16 mg/dl (9-23); CHLORIDE 107 mmol/L (98-107); CHOLESTEROL 205 mg/dL (<200); LDL CHOLESTEROL 99 mg/dL (9-159); POTASSIUM 3.7 mmol/L (3.4-5.1); SGPT/ALT 12 U/L (5-49); TOTAL PROTEIN 6.9 gm/dL (6.0-8.0); TRIGLYCERIDES 62 mg/dl (<150)
[2023-12-03 14:49] LABS: VITAMIN D, 25-HYDROXY 40.5 ng/mL (30-100)
== END | disposition home or self-care (01) ==
LOC: LAB 13:57
PROVIDERS: ATTEND Family Medicine
DX: I10 Essential (primary) hypertension (principal); E78.00 Pure hypercholesterolemia, unspecified; E55.9 Vitamin D deficiency, unspecified; R53.83 Other fatigue; B35.1 Tinea unguium

== ENCOUNTER → 2024-03-30 | Outpatient (CLI) | payer MEDICARE ==
[2024-03-30 11:44] LABS: ALKALINE PHOSPHATASE 66 U/L (46-116); BUN 13 mg/dl (9-23); CHLORIDE 107 mmol/L (98-107); POTASSIUM 3.8 mmol/L (3.4-5.1); SGPT/ALT 11 U/L (5-49); TOTAL PROTEIN 6.8 gm/dL (6.0-8.0)
== END | disposition home or self-care (01) ==
LOC: LAB 10:29
PROVIDERS: ATTEND Family Medicine
DX: B35.1 Tinea unguium (principal)

== ENCOUNTER 2024-07-07 17:46 | Emergency (ER) | payer MEDICARE ==
[~2024-07-07] VITALS: Ht 165.1 cm; Wt 73.3 kg
[2024-07-07] MEDS ORDERED: Acetaminophen/Hydrocodone 5 MG/325 MG TABLET PO ONE (18:00)
[2024-07-07] MEDS ORDERED: DEXAMETHASONE 4 MG TAB PO ONE (18:00)
[2024-07-07] MEDS ORDERED: PREDNISONE50 MG PO (18:07)
[2024-07-07] MEDS ORDERED: HYDROCODONE-AC1 EAC1 PO (18:10)
== END 2024-07-07 18:12 | disposition home or self-care (01) ==
LOC: ED 17:46
DX: M25.512 Pain in left shoulder (principal); F41.9 Anxiety disorder, unspecified; K21.9 Gastro-esophageal reflux disease without esophagitis; F32.A Depression, unspecified; I10 Essential (primary) hypertension; M19.90 Unspecified osteoarthritis, unspecified site; Z91.041 Radiographic dye allergy status; Z90.710 Acquired absence of both cervix and uterus; Z95.5 Presence of coronary angioplasty implant and graft; Z90.89 Acquired absence of other organs; Z90.49 Acquired absence of other specified parts of digestive tract; Z98.890 Other specified postprocedural states

== ENCOUNTER → 2024-10-19 | Outpatient (CLI) | payer MEDICARE ==
[~2024-10-19] MED LIST changes: +AMLODIPINE BESYL5 MG PO; +ASPIRIN ADULT L81 M1 PO; +ATORVASTATIN CA20 M1 PO; +CEFUROXIME AXE250 MG PO; +CLOPIDOGREL75 MG PO; +ELIQUIS5 M1 PO; +HYDROCODONE-AC1 EAC1 PO; +LEVETIRACETAM250 MG PO; +METOPROLOL SUCC25 M2 PO
== END | disposition home or self-care (01) ==
LOC: CT 10-10 09:00
PROVIDERS: ATTEND Urology
DX: N39.0 Urinary tract infection, site not specified (principal); R33.9 Retention of urine, unspecified

== ENCOUNTER → 2025-03-01 | Outpatient (CLI) | payer MEDICARE | END | disposition home or self-care (01) | LOC: US 14:00 | PROVIDERS: ATTEND Urology | DX: N28.89 Other specified disorders of kidney and ureter (principal) ==

== ENCOUNTER → 2025-05-12 | Outpatient (CLI) | payer MEDICARE | END | disposition home or self-care (01) | LOC: CT 04-25 13:00 | PROVIDERS: ATTEND Urology | DX: N13.4 Hydroureter (principal); N28.1 Cyst of kidney, acquired; N32.9 Bladder disorder, unspecified; Z90.49 Acquired absence of other specified parts of digestive tract ==